=== PATIENT | male | born 1970 | race Caucasian/White ===

== ENCOUNTER 2020-09-11 20:05 | Emergency (ER) | payer OTHER, SELFPAY ==
[~2020-09-11] VITALS: Ht 175.3 cm; Wt 93.1 kg
[2020-09-11 20:11] VITALS: BP 131/84
== END 2020-09-11 21:49 | disposition home or self-care (01) ==
LOC: ED 21:43
DX: S80.02XA Contusion of left knee, initial encounter (principal); E11.9 Type 2 diabetes mellitus without complications; W18.30XA Fall on same level, unspecified, initial encounter; Y93.89 Activity, other specified; Y92.410 Unspecified street and highway as the place of occurrence of the external cause; Y99.8 Other external cause status
CPT/HCPCS: 82962; 99283